=== PATIENT | male | born 1965 | race Caucasian/White ===

== ENCOUNTER 2017-03-18 17:08 | Emergency (ER) | payer MEDICAID ==
[~2017-03-18] VITALS: Ht 167.6 cm; Wt 74.8 kg
[~2017-03-18 17:08] MED LIST: COLCHICINE0.6 M2 PO; INDOMETHACIN50 MG PO; PERCOCET 650 MG1 TAB PO
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
[2017-03-18 18:03] VITALS: BP 163/85
--- OUTSIDE RECORDS SUMMARY | 2017-03-18 18:08 | External Medical Summary Rpt ---
Author Author DARÍO Address Unknown Phone [email or web address] Purpose Continuity of Care Document - through 2016
--- OUTSIDE RECORDS SUMMARY | 2017-03-18 18:08 | External Medical Summary Rpt ---
Author Author DARÍO Address Unknown Phone [email or web address] Purpose Continuity of Care Document - through 2016
--- OUTSIDE RECORDS SUMMARY | 2017-03-18 18:08 | External Medical Summary Rpt ---
Author Author [employer] Organization [employer] Address Unknown Phone Unavailable Purpose Continuity of Care Document - through 2016
--- OUTSIDE RECORDS SUMMARY | 2017-03-18 18:08 | External Medical Summary Rpt ---
Author Author DARÍO Pettit, [employer] Organization [employer] Address Unknown Phone Unavailable
--- OUTSIDE RECORDS SUMMARY | 2017-03-18 18:08 | External Medical Summary Rpt ---
Demographics Preferred Language Icelandic Marital Status Unknown Amish Affiliation Unknown Race Unknown Ethnic Group Unknown Author Author , DARÍO CHANEL Address Unknown Phone Immunization Unable to retrieve immunization data due to connection failure with Immunization Registry. Please try again later.
--- OUTSIDE RECORDS SUMMARY | 2017-03-18 18:08 | External Medical Summary Rpt ---
Demographics Preferred Language Japanese Marital Status Unknown Yarsani Affiliation Unknown Race Unknown Ethnic Group Unknown Author Author , DARÍO CHANEL Address Unknown Phone Immunization Unable to retrieve immunization data due to connection failure with Immunization Registry. Please try again later.
== END 2017-03-18 18:04 | disposition home or self-care (01) ==
LOC: ER 17:08
DX: S51.012A Laceration without foreign body of left elbow, initial encounter (principal); V89.2XXA Person injured in unspecified motor-vehicle accident, traffic, initial encounter; Z72.0 Tobacco use; F10.10 Alcohol abuse, uncomplicated